=== PATIENT | male | born 1935 | race Caucasian/White ===

== ENCOUNTER 2019-05-01 10:31 | Inpatient (IN) | payer OTHER ==
--- OUTSIDE RECORDS SUMMARY | 2019-05-01 10:41 | XMS REPORT | Continuity of Care Document ---
:1935 Author Organization [employer] [facility] Care Team Providers Name Role Phone Tarena Unavailable Unavailable Problems No Data Provided for This Section Medications No Data Provided for This Section Allergies, Adverse Reactions, Alerts No Known Medication Allergies Immunizations No Data Provided for This Section Results No Data Provided for This Section Pathology Reports No Data Provided for This Section Diagnostic Reports No Data Provided for This Section Consultation Notes No Data Provided for This Section Discharge Summaries No Data Provided for This Section History and Physicals No Data Provided for This Section Vital Signs No Data Provided for This Section Encounters Location Location Encounter Encounter Reason Attending ADM DC Status Source Details Type Number For Provider Date Date Visit Outpatient [id number] TATIANA 11/08 Active [facility] Outpatient [id number] TATIANA 12/06 [facility] Outpatient [id number] TATIANA 04/25 [facility] Procedures No Data Provided for This Section Assessment and Plan No Data Provided for This Section Plan of Care No Data Provided for This Section Social History No Data Provided for This Section Family History No Data Provided for This Section Advance Directives No Data Provided for This Section Functional Status No Data Provided for This Section
--- OUTSIDE RECORDS SUMMARY | 2019-05-01 10:42 | XMS REPORT ---
:1935 [facility] [address] [place] [address] Care Team Providers Name Role Phone Unavailable Unavailable Unavailable Payers Payer Name Policy Type Policy Number Effective Date Expiration Date Problems This patient has no known problems. Allergies, Adverse Reactions, Alerts Allergy Name Allergy Status Severity Reaction(s) Onset Inactive Treating Comments Type Date Date Clinician morphine DA Active SV 04-26 00:00: 00 codeine DA Active SV 18 00:00: 00 ciprofloxacin DA Active SC 18 00:00: 00 etodolac DA Active U 18 00:00: 00 tramadol DA Active SC 2017-18 00:00: 00 meperidine DA Active U 18 00:00: 00 STEROIDS DA Active SV 03-03 00:00: 00 Medications This patient has no known medications.
[2019-05-01 10:58] VITALS: BMI 23.8
[2019-05-01] MEDS ORDERED: LOPERAMIDE HCL 2 MG CAPSULE PO PRN (12:00)
[2019-05-01] MEDS ORDERED: ONDANSETRON 4 MG (ODT) TAB PO PRN (12:00)
[2019-05-01] MEDS ORDERED: ONDANSETRON 4 MG/2 ML VIAL IV PRN (12:00)
[2019-05-01] MEDS ORDERED: DIPHENHYDRAMINE 25 MG TAB/CAP PO PRN (12:00)
[2019-05-01] MEDS ORDERED: POLYETHYL GLY 3350 17 GM/DOSE PO PRN (12:00)
[2019-05-01 12:12] LABS: Absolute Lymphocytes (CBC) 1.5 K/uL (0.7-4.9); Basophils % 0.5 % (0-1.3); Hematocrit 33.1 % (39.6-49.0); Lymphocytes % 14.8 % (15.3-44.8); MPV 9.2 fL (7.6-11.3); RBC Red Blood Cell Count 3.44 M/uL (4.33-5.43)
[2019-05-01 12:21] LABS: Protime INR 1.01
[2019-05-01] MEDS: NACHLORIDE 0.45% 1,000 ML IV SCH (12:23)
[2019-05-01 13:24] LABS: Albumin 3.3 g/dL (3.4-5.0); Bilirubin Direct 0.4 mg/dL (0-0.2); Phosphorus 2.4 mg/dL (2.5-4.9); Potassium 4.3 mmol/L (3.5-5.1); Protein, Total 6.5 g/dL (6.4-8.2); Thyroid Stimulating Hormone 1.92 uIU/mL (0.360-3.740)
--- NOTE | 2019-05-01 13:58 | RAD REPORT ---
EXAM DESCRIPTION: RAD - Chest Pa And Lat (2 Views) - 05/01/2019 1:49 pm CLINICAL HISTORY: DEHYDRATION Chest pain. COMPARISON: Chest Pa And Lat (2 Views) dated 11/16/2018; Chest Single View dated 05/27/2016; CHEST SING LE VIEW dated 11/29/2014; CHEST SINGLE VIEW dated 01/18/2010 FINDINGS: The lungs are emphysematous but clear. The heart is upper limit of normal in size. No disp laced fractures. Sternotomy wires noted. IMPRESSION: Prominent COPD.
--- NOTE | 2019-05-01 14:33 | RAD REPORT ---
EXAM DESCRIPTION: RAD - Barium Swallow Modified - 05/01/2019 2:27 pm CLINICAL HISTORY: Failed bedside swallow test Dysphasia COMPARISON: Upper GI Series Wo KUB dated 06/08/2018 TECHNIQUE: The patient was given liquid, semi-solid and solid forms of barium. Lateral view fluorosc opic imaging was performed in conjunction with speech pathology service. FINDINGS: Laryngeal penetration: to the vocal cords with tsp thin. Aspiration: delayed cough, with very large serial sip of nectar when taking barium tablet only. Not r epeated on small single sips. Mild to moderate pharyngeal residue in vallecular, pyriform, posterior wall. Mild esophageal stasis. Total fluoroscopy time: 3 minutes and 51 seconds
--- NOTE | 2019-05-01 15:50 | RAD REPORT ---
EXAM DESCRIPTION: MRI - MRA Head Wo Cont - 05/01/2019 3:29 pm CLINICAL HISTORY: Transient alteration of awareness COMPARISON: MR brain November 2018 TECHNIQUE: Axial and coronal 3D [id number] image acquisition was performed. 3D rotational images were generated with source and reconstruction images reviewed. Horizontal and vertical axis rotation al views generated using MIP protocol. FINDINGS: Major venous sinuses are patent. No aneurysm or vascular malformation. Distal vertebral arteries and the basilar artery are normal. Significant atherosclerotic changes are present in these changes are accentuated by motion. Significa nt luminal narrowing involves the supraclinoid portions of each internal carotid artery. This atheros clerotic change continues into the origins of each anterior cerebral artery and each middle cerebral artery. There are significant atherosclerotic changes causing luminal narrowing at the proximal M2 br anches of each site. Significant atherosclerotic changes are present in the distal P2 branches of eac h posterior cerebral artery. IMPRESSION: Significant intracranial atherosclerotic changes are present involving the distal most a spect of each internal carotid artery, [place] and proximal branches of the anterior, middle and posterior cerebral artery distributions. No aneurysm or vascular malformation.
--- NOTE | 2019-05-01 15:54 | RAD REPORT ---
EXAM DESCRIPTION: MRI - MRA Neck W/Wo Cont - 05/01/2019 3:29 pm CLINICAL HISTORY: Transient alteration of awareness, stroke-like symptoms COMPARISON: None. TECHNIQUE: Axial and coronal 3D [id number] image acquisition was performed. 3D rotational images were generated with source and reconstruction images reviewed. Horizontal and vertical axis rotation al views generated using MIP protocol. FINDINGS: Aortic arch is 3 vessel configuration with no origins stenosis. There is approximately 25% stenosis of the left subclavian artery distal to the left vertebral artery origin. Imaged portion of the right subclavian artery is unremarkable. Vertebral arteries are codominant. Mild atherosclerotic changes are present at each carotid bulb. This does not result in any measurable luminal narrowing. No dissection or vascular malformation. No significant luminal narrowing or ather osclerotic change otherwise noted. IMPRESSION: Mild atherosclerotic changes are present without significant luminal narrowing. No dissection, aneurysm or vascular malformation.
--- NOTE | 2019-05-01 15:57 | RAD REPORT ---
EXAM DESCRIPTION: MRI - Brain W/Wo Cont - 05/01/2019 3:29 pm CLINICAL HISTORY: Transient alteration of awareness, stroke-like symptoms COMPARISON: MR brain November 2018 TECHNIQUE: Sagittal and axial T1-weighted images were obtained. Axial PD/heavily T2-weighted and T2- FLAIR images were obtained along with axial DWI/ADC mapping sequences. Coronal heavily T2 weighted s equence obtained. Axial and coronal post-contrast T1-weighted images were also obtained. A 20 ml Mul tihance contrast following utilized. FINDINGS: No intracranial hemorrhage, mass or acute infarction. There is no edema or shift of midli ne structures. No extra-axial fluid collections. Mott-matter/white matter junction is preserved. Sig nal voids are seen as a normal finding in the major intracranial vessels. Atrophy and chronic ischemi c changes are present to moderate degree for age. Pattern matches November 2018. Ventricles are in pr oportion to the volume loss Post-contrast images show normal enhancement. No dural thickening. Mastoid air cells are clear. No air-fluid level in the paranasal sinuses. No globe or orbital content abnormality. No sella or supra sella abnormality. IMPRESSION: Atrophy and chronic ischemic changes are present matching November 2018 examination. No acute intracranial finding.
[2019-05-01] MEDS: CEFTRIAXONE/SWI 1gm 1 GM/10 ML SYR IV SCH (16:47)
[2019-05-01 18:22] LABS: Urine Appearance CLOUDY; Urine Bilirubin NEGATIVE (NEG); Urine Blood NEGATIVE (NEG); Urine Color YELLOW; Urine Glucose NEGATIVE (NEG); Urine Protein NEGATIVE (NEG)
[2019-05-01 18:48] LABS: Urine Microscopic Reflex ORDER UMIC
[2019-05-01 19:00] LABS: Urine Bacteria LOADED /HPF (NONE SEEN); Urine RBC <5 /HPF (NONE SEEN)
[2019-05-01 19:01] LABS: Urine Culture Reflex Order REFLEXED
[2019-05-02] MEDS: NACHLORIDE 0.45% 1,000 ML IV SCH ×2 (02:25→14:20)
[2019-05-02 05:54] LABS: Absolute Lymphocytes (CBC) 1.6 K/uL (0.7-4.9); Basophils % 0.7 % (0-1.3); Lymphocytes % 19.9 % (15.3-44.8); RBC Red Blood Cell Count 3.42 M/uL (4.33-5.43)
[2019-05-02 06:13] LABS: Potassium 4.2 mmol/L (3.5-5.1)
[2019-05-02] MEDS ORDERED: ENOXAPARIN 40 MG/0.4 ML SQ SCH (09:00)
--- NOTE | 2019-05-02 10:41 | EKG ---
Test Date: 2019-05-01 Test Time: 11:44:55 Assembler Product: NISHA MEASUREMENT RESULTS: Intervals: Rate: 71 NV: 190 QRSD: 110 QT: 394 QTc: 428 Leonard: P: 62 NV: 190 QRS: 65 T: 69 INTERPRETIVE STATEMENTS: Normal sinus rhythm Normal ECG Compared to ECG 03/31/2017 09:11:07 Sinus arrhythmia no longer present Electronically Signed On 05-02-19 10:41:17 CDT by Kwame Downing
[2019-05-02 11:46] VITALS: O2SAT 98
[2019-05-02] MEDS: CEFTRIAXONE/SWI 1gm 1 GM/10 ML SYR IV SCH (14:30)
[2019-05-02 17:05] VITALS: BP 149/68; TEMP 98.5
--- NOTE | 2019-05-02 21:37 | P.DS ---
Admission Date: 05/02/19 Discharge Date: 05/02/19 Disposition: ROUTINE DISCHARGE Hospital Course: MR ZEE IS A LOT BETTER WITH IV FLUIDS AND ABX. HE HAS UTI AND DEHYDRATION. HE DID NOT HAVE ANY STROKE OR TUMOR ON MRI. HE IS STABLE FOR DISCHARGE. HE WILL NOT DRIVE ANY LONGER. FAMILY IS ARRANGING FOR 24 HOUR CARE. HE WILL TAKE CEFTIN BID FOR 7 DAYS. FU IN OFFICE IN ONE WEEK. HIS BARIUM STUDY SHOWS ASPIRATION POTENTIAL AND HAS BEEN ADVISED TO THICKEN LIQUIDS. Vital Signs/Physical Exam: Temp Pulse Resp BP Pulse Ox 98.5 F 72 17 149/68 H 98 05/02/19 16:00 05/02/19 16:00 05/02/19 16:00 05/02/19 16:00 05/02/19 16:00 General: Alert, In no apparent distress HEENT: Atraumatic, PERRLA, EOMI Neck: Supple, JVD not distended Respiratory: Clear to auscultation bilaterally, Normal air movement Cardiovascular: Regular rate/rhythm, Normal S1 S2 Gastrointestinal: Normal bowel sounds, No tenderness Musculoskeletal: No tenderness Integumentary: No rashes Neurological: Normal speech, Abnormal strength (MIL DIFFUSE WEAKNESS.) Lymphatics: No axilla or inguinal lymphadenopathy Laboratory Data at Discharge: WBC 7.8 K/uL (4.3-10.9) D 05/02/19 05:27 Hgb 11.3 g/dL (13.6-17.9) L 05/02/19 05:27 Hct 33.0 % (39.6-49.0) L 05/02/19 05:27 Plt Count 191 K/uL (152-406) 05/02/19 05:27 PT 11.9 SECONDS (9.5-12.5) 05/01/19 11:55 INR 1.01 05/01/19 11:55 APTT 23.3 SECONDS (24.3-36.9) L 05/01/19 11:55 Sodium 141 mmol/L (136-145) 05/02/19 05:27 Potassium 4.2 mmol/L (3.5-5.1) 05/02/19 05:27 BUN 16 mg/dL (7-18) 05/02/19 05:27 Creatinine 1.21 mg/dL (0.55-1.3) 05/02/19 05:27 Glucose 101 mg/dL (74-106) 05/02/19 05:27 Phosphorus 2.4 mg/dL (2.5-4.9) L 05/01/19 11:55 Magnesium 2.0 mg/dL (1.8-2.4) 05/02/19 05:27 Total Bilirubin 1.0 mg/dL (0.2-1.0) 05/01/19 11:55 AST 20 U/L (15-37) 05/01/19 11:55 ALT 22 U/L (12-78) 05/01/19 11:55 Alkaline Phosphatase 84 U/L (45-117) 05/01/19 11:55 Home Medications: Amlodipine Besylate 5 mg PO BEDTIME 05/01/19 Aspirin 1 tab PO DAILY 05/01/19 Atorvastatin Calcium 40 mg PO BEDTIME 05/01/19 Calcium Carbonate/Vitamin D3 [Calcium 600-Vit D3 800 Tablet] 1 each PO BID 05/01 Chlorpromazine HCl [Thorazine] 25 mg PO DAILY 05/01/19 Gabapentin 300 mg PO BEDTIME 05/01/19 Glimepiride 1 tab PO DAILY 05/01/19 Glucosamine/Chondroiti/Hrb#270 [Cosamin Asu Capsule] 2 tab PO BEDTIME 05/01/19 Lisinopril 1 tab PO DAILY 05/01/19 Lubiprostone [Amitiza] 16 mcg PO BEDTIME 05/01/19 Meclizine HCl 1 tab PO BEDTIME 05/01/19 Memantine HCl 1 tab PO BID 05/01/19 Multivitamin [Daily Multiple Vitamin] 1 each PO DAILY 05/01/19 Omeprazole [Prilosec] 1 tab PO DAILY 05/01/19 Quetiapine Fumarate [Seroquel] 25 mg PO BEDTIME 05/01/19 Rivastigmine Patch [Exelon 9.5 mg Patch] 9.5 mg TD BEDTIME 05/01/19 Terbinafine HCl [Lamisil*] 1 tab PO BEDTIME 05/01/19 Cefuroxime [Ceftin] 250 mg PO BID #14 tab 05/02/19 New Medications: Cefuroxime [Ceftin] 250 mg PO BID #14 tab Followup: Vignesh Murillo MD [Primary Care Provider] -
== END 2019-05-02 17:36 | disposition home or self-care (01) | DRG 690 ==
LOC: 2ND 10:39 → OBSVTOIN 05-02 16:21
PROVIDERS: ADMIT Internal Medicine; ATTEND Internal Medicine
DX: N39.0 Urinary tract infection, site not specified (principal); E86.0 Dehydration; I12.9 Hypertensive chronic kidney disease with stage 1 through stage 4 chronic kidney disease, or unspecified chronic kidney disease; E11.22 Type 2 diabetes mellitus with diabetic chronic kidney disease; N18.2 Chronic kidney disease, stage 2 (mild); E11.42 Type 2 diabetes mellitus with diabetic polyneuropathy; E78.5 Hyperlipidemia, unspecified; K21.9 Gastro-esophageal reflux disease without esophagitis; G30.9 Alzheimer's disease, unspecified; F02.80 Dementia in other diseases classified elsewhere, unspecified severity, without behavioral disturbance, psychotic disturbance, mood disturbance, and anxiety; Z88.1 Allergy status to other antibiotic agents; Z88.5 Allergy status to narcotic agent
CPT/HCPCS: 36415; 70544; 70549; 70553; 71046; 74230; 80048; 80076; 81003; 81015; 82306; 82607; 82962; 83735; 84100; 84443; 85025; 85610; 85730; 87077; 87086; 87088; 87186; 92526; 92611; 93005; 97161; A9577; G0378; J0696; J1650

== ENCOUNTER 2019-06-11 20:48 | Emergency (ER) | payer OTHER ==
--- OUTSIDE RECORDS SUMMARY | 2019-06-11 20:53 | XMS REPORT ---
:1935 [facility] Address [address] [place] [address] Care Team Providers Name Role Phone Unavailable Unavailable Unavailable Payers Payer Name Policy Type Policy Number Effective Date Expiration Date Problems This patient has no known problems. Allergies, Adverse Reactions, Alerts Allergy Name Allergy Status Severity Reaction(s) Onset Inactive Treating Comments Type Date Date Clinician morphine DA Active SV 18 00:00: 00 codeine DA Active SV 18 00:00: 00 ciprofloxacin DA Active TN 18 00:00: 00 etodolac DA Active U 18 00:00: 00 tramadol DA Active TN 18 00:00: 00 meperidine DA Active U 18 00:00: 00 STEROIDS DA Active SV 03-03 00:00: 00 Medications This patient has no known medications.
--- OUTSIDE RECORDS SUMMARY | 2019-06-11 20:53 | XMS REPORT | Continuity of Care Document ---
:1935 Author Organization [employer] Care Team Providers Name Role Phone [employer] Unavailable Unavailable Problems Problem Status Onset Classification Date Comments Source Date Reported Constipation Active Problem 05/13/2019 [facility] Diabetes Active Problem 05/13/2019 [facility] Dizziness Active Problem 05/13/2019 [facility] Acid reflux Active Problem 05/13/2019 [facility] Hiccups Active Problem 05/13/2019 [facility] Hyperlipidemia Active Problem 05/13/2019 [facility] HBP (Confirmed) Active Problem 05/13/2019 [facility] Memory loss Active Problem 05/13/2019 [facility] Neuropathy Active Problem 05/13/2019 [facility] Constipation Active Problem 05/29/2019 [facility] (disorder) [facility] Diabetes mellitus Active Problem 05/29/2019 [facility] (disorder[facility] Dizziness (finding) Active Problem 05/29/2019 [facility] Gastroesophageal Active Problem 05/29/2019 [facility] reflux disease Neuro (disorder) Hiccoughs (finding) Active Problem 05/29/2019 [facility] Hyperlipidemia Active Problem 05/29/2019 [facility] (disorder) [facility] Hypertensive Active Problem 05/29/2019 [facility] disorder, systemic Neuro arterial (disorder) Memory impairment Active Problem 05/29/2019 [facility] (finding) [facility] Neuropathy Active Problem 05/29/2019 [facility] (disorder) [facility] Medications Medication Details Route Status Patient Ordering Order Source Instructions Provider Date 24 HR =1 patch, Active [facility] rivastigmine TOP, 019 [facility] 0.396 MG/HR Daily, Transdermal Patch apply to [Exelon] area that is clean/dry/ hairless & free of redness/ir ritation/b urns/cuts, # 30 patch, 0 Refill(s) meclizine 25 mg 25 mg=1 Active [facility] oral tablet tab, PO, 019 [facility] TID, 0 Refill(s) atorvastatin 40 40 mg=1 Active [facility] mg oral tablet tab, PO, 019 [facility] Daily, 0 Refill(s) gabapentin 300 MG 300 mg=1 Active [facility] Oral Capsule cap, PO, 019 Neuro TID, 0 Refill(s) QUEtiapine 25 mg 25 mg=1 Active [facility] oral tablet tab, PO, 019 Neuro TID, 0 Refill(s) rivastigmine 0 Inactive [facility] Refill(s) 019 Neuro chlorproMAZINE 25 25 mg=1 Active [facility] mg oral tablet tab, PO, 019 Neuro TID, 0 Refill(s) glimepiride 2 mg 2 mg=1 Active [facility] oral tablet tab, PO, 019 [facility] Daily, 0 Refill(s) Omeprazole 40 mg, PO, Active [facility] Daily, 0 019 [facility] Refill(s) lubiprostone 8 Active [facility] 0.008 MG Oral microgram= 019 Neuro Capsule [Amitiza] 1 cap, PO, BID, # 60 tab, 0 Refill(s) naproxen sodium 220 mg, Active [facility] PO, 0 019 [facility] Refill(s) lisinopril 40 mg 40 mg=1 Active [facility] oral tablet tab, PO, 019 [facility] Daily, 0 Refill(s) Aspirin 81 mg, 0 Active [facility] Refill(s) 019 [facility] Amlodipine 5 mg, PO, Active [facility] Daily, 0 019 [facility] Refill(s) Allergies, Adverse Reactions, Alerts Substance Category Reaction Severity Reaction Status Date Comments Source type Reported codeine Assertion Drug Active [facility] morphine Assertion Drug Active [facility] Cipro Assertion Drug Active [facility] Lodine Assertion Drug Active [facility] Demerol Assertion Drug Active [facility] escitalopram Assertion Drug Active [facility] anabolic Assertion Drug Active [facility] steroids allergy Neuro traMADol Assertion Drug Active [facility] Immunizations No Data Provided for This Section Results No Data Provided for This Section Pathology Reports No Data Provided for This Section Diagnostic Reports No Data Provided for This Section Consultation Notes No Data Provided for This Section Discharge Summaries No Data Provided for This Section History and Physicals No Data Provided for This Section Vital Signs Vital Sign Value Date Comments Source Systolic (mm Hg) 103 11/08/2018 [facility] Diastolic (mm Hg) 51 11/08/2018 [facility] Heart Rate 70 11/08/2018 [facility] Respitory Rate 16 11/08/2018 [facility] Height 187.96 cm 11/08/2018 [facility] Weight 83.182 11/08/2018 [facility] BMI Calculated 23.54 11/08/2018 [facility] Encounters Location Location Encounter Encounter Reason Attending ADM DC Status Source Details Type Number For Provider Date Date Visit Outpatient [id number] TATIANA 11/08 Active [facility] Outpatient [id number] Tatiana 11/08 11/09 [facility] [place] Outpatient [id number] TATIANA 12/06 [facility] Outpatient [id number] TATIANA 04/25 [facility] Ambulatory [id number] Tatiana 05/11 05/11 [facility] [place] Procedures Procedure Code Date Perfomer Comments Source Bypass [id number] [facility] Carotid artery [id number] [facility] doppler assessment Neuro Cataract surgery [id number] [facility] Cholecystectomy [id number] [facility] Polypectomy [id number] [facility] Shoulder replacement [id number] [facility] Assessment and Plan No Data Provided for This Section Plan of Care No Data Provided for This Section Social History Social History Date Source Social History TypeResponse 11/10/2018 [facility] Employment/School 1 Smoking Status Never smoker; Exposure to Tobacco Smoke Unable to obtain; Cigarette Smoking Last 365 Days Unable to obtain; Reg Smoking Cessation Counseling No entered on: 12/06/18 1Can release medical information to Dr. Murillo-Primary care DrScott Daughter- Iva Shore, Son- Minh zee, Son -Mike Zee Family History No Data Provided for This Section Advance Directives No Data Provided for This Section Functional Status No Data Provided for This Section
--- OUTSIDE RECORDS SUMMARY | 2019-06-11 20:53 | XMS REPORT | Summary of Care ---
:1935 Author Organization [facility] Address [address] [place] [address]- Encounter [facility] Eliz(CHANCE) [id number] Date(s): 11/08/18 - 11/08/18 [facility] [address], [place] [id number]- [phone] Discharge Disposition: Home or Self Care Attending Physician: Gonzalo Wilkerson MD Referring Physician: Vignesh Murillo MD Vital Signs Most recent to oldest [Reference Range]: 1 Height 187.96 cm (11/08/18 11:36 AM) Blood Pressure [90-140/60-90 mmHg] 103/51 mmHg (11/08/18 11:36 AM) Respiratory Rate [14-20 BRMIN] 16 BRMIN (11/08/18 11:36 AM) Peripheral Pulse Rate [60-100 bpm] 70 bpm (11/08/18 11:36 AM) Weight 83.182 kg (11/08/18 11:36 AM) Body Mass Index 23.54 m2 (11/08/18 11:36 AM) Problem List Condition Effective Dates Status Health Status Informant Constipation(Confirmed) Active Diabetes(Confirmed) Active Dizziness(Confirmed) Active Acid reflux(Confirmed) Active Hiccups(Confirmed) Active Hyperlipidemia(Confirmed) Active HBP (high blood pressure)(Confirmed) Active Memory loss(Confirmed) Active Neuropathy(Confirmed) Active Allergies, Adverse Reactions, Alerts Substance Reaction Severity Status codeine Active morphine Active Cipro Active Lodine Active Demerol Active escitalopram Active anabolic steroids Active traMADol Active Medications Amitiza 8 mcg oral capsule 8 microgram=1 cap, PO, BID, # 60 tab, 0 Refill(s) Start Date: 11/08/18 Status: OrderedamLODIPine 5 mg, PO, Daily, 0 Refill(s) Start Date: 11/08/18 Status: Orderedaspirin 81 mg, 0 Refill(s) Start Date: 11/08/18 Status: Orderedatorvastatin 40 mg oral tablet 40 mg=1 tab, PO, Daily, 0 Refill(s) Start Date: 11/08/18 Status: OrderedchlorproMAZINE 25 mg oral tablet 25 mg=1 tab, PO, TID, 0 Refill(s) Start Date: 11/08/18 Status: OrderedExelon 9.5 mg/24 hr transdermal film, extended release =1 patch, TOP, Daily, apply to area that is clean/dry/hairless & free of redness/irritation/vela/cuts, # 30 patch, 0 Refill(s) Start Date: 11/08/18 Status: Orderedgabapentin 300 mg oral capsule 300 mg=1 cap, PO, TID, 0 Refill(s) Start Date: 11/08/18 Status: Orderedglimepiride 2 mg oral tablet 2 mg=1 tab, PO, Daily, 0 Refill(s) Start Date: 11/08/18 Status: Orderedlisinopril 40 mg oral tablet 40 mg=1 tab, PO, Daily, 0 Refill(s) Start Date: 11/08/18 Status: Orderedmeclizine 25 mg oral tablet 25 mg=1 tab, PO, TID, 0 Refill(s) Start Date: 11/08/18 Status: Orderednaproxen sodium 220 mg, PO, 0 Refill(s) Start Date: 11/08/18 Status: Orderedomeprazole 40 mg, PO, Daily, 0 Refill(s) Start Date: 11/08/18 Status: OrderedQUEtiapine 25 mg oral tablet 25 mg=1 tab, PO, TID, 0 Refill(s) Start Date: 11/08/18 Status: Orderedrivastigmine 0 Refill(s) Start Date: 11/08/18 Stop Date: 11/08/18 Status: Discontinued Results No data available for this section Immunizations No data available for this section Procedures Procedure Date Related Diagnosis Body Site Status Bypass Completed Carotid artery doppler assessment Completed Cataract surgery Completed Cholecystectomy Completed Polypectomy Completed Shoulder replacement Completed Social History Social History Type Response Employment/School 1 Smoking Status Never smoker; Exposure to Tobacco Smoke Unable to obtain; Cigarette Smoking Last 365 Days Unable to obtain; Reg Smoking Cessation Counseling No entered on: 12/06/18 1Can release medical information to Dr. Murillo-Primary care Dr. Daughter- Iva Shore, Son- Minh zee, Son -Mike Zee Assessment and Plan No data available for this section
[2019-06-11 23:39] LABS: Urine Blood TRACE (NEG); Urine Glucose NEGATIVE (NEG); Urine Protein NEGATIVE (NEG); Urine Specific Gravity 1.015 (1.005-1.030)
[2019-06-12] LABS: Absolute Lymphocytes (CBC) 2.8 K/uL (0.7-4.9); Basophils % 1.1 % (0-1.3); Hematocrit 33.5 % (39.6-49.0); Lymphocytes % 31.5 % (15.3-44.8); MPV 8.7 fL (7.6-11.3); RBC Red Blood Cell Count 3.47 M/uL (4.33-5.43)
[2019-06-12 00:03] LABS: Urine Bacteria LOADED /HPF (NONE SEEN); Urine Culture Reflex Order REFLEXED; Urine RBC <5 /HPF (NONE SEEN)
[2019-06-12 00:14] LABS: Albumin 3.5 g/dL (3.4-5.0); Bilirubin Direct 0.2 mg/dL (0-0.2); Bilirubin Total 0.6 mg/dL (0.2-1.0); Potassium 4.1 mmol/L (3.5-5.1)
--- NOTE | 2019-06-12 01:45 | ER ---
Nurse's Notes [facility] Name: Nasir Matthews Age: 84 yrs Sex: Male : 1935 Arrival Date: 06/11/2019 Time: 20:50 Bed 15 Private MD: Diagnosis: Urinary tract infection, site not specified Presentation: 06/11 21:32 Presenting complaint: Child states: He was acting very anxious recently, thinking he jb4 was going to and was very panicked. Tonight he was more confused and disoriented. He usually gets this way when he has a UTI. Transition of care: patient was not received from another setting of care. Onset of symptoms was June 11, 2019. Risk Assessment: Do you want to hurt yourself or someone else? Patient reports no desire to harm self or others. Initial Sepsis Screen: Does the patient meet any 2 criteria? No. Patient's initial sepsis screen is negative. Does the patient have a suspected source of infection? No. Patient's initial sepsis screen is negative. Care prior to arrival: None. 21:32 Method Of Arrival: Wheelchair jb4 21:32 Acuity: REBEL 3 jb4 Historical: - Allergies: 21:48 Cipro; jb4 21:48 Codeine; jb4 21:48 Demerol; jb4 21:48 Morphine; jb4 21:48 tramadol; jb4 21:48 Lodine; jb4 21:48 steroids; jb4 21:48 escitalopram; jb4 - Home Meds: 21:48 aspirin 81 mg Oral TbEC 1 tab once daily [Active]; Lantus 100 unit/mL Sub-Q soln jb4 [Active]; lisinopril 40 mg Oral tab 1 tab once daily [Active]; Nexium 40 mg Oral cpDR 1 cap once daily [Active]; Norvasc 5 mg Oral tab 1 tab twice a day [Active]; gabapentin 300 mg oral cap 1 cap [Active]; chlorpromazine 25 mg Oral tab 1 tab 3 times per day [Active]; atorvastatin 40 mg oral tab 1 tab once daily [Active]; quetiapine 25 mg oral tab 1 tab [Active]; rivastigmine 9.5 mg/24 hr transdermal pt24 1 patch once daily [Active]; memantine 5 mg oral tab 2 tabs 2 times per day [Active]; curaphen [Active]; Calcium+D oral oral [Active]; meclizine 25 mg Oral tab 1 tab 3 times per day [Active]; omeprazole 40 mg Oral cpDR 1 cap once daily [Active]; Amitiza 8 mcg oral cap 1 cap 2 times per day [Active]; Lamisil 250 mg oral tab 1 tab once daily [Active]; - PMHx: 21:48 Dementia; Diabetes - IDDM; High Cholesterol; Hypertension; neuropathy; vertigo; acid jb4 reflex; - PSHx: 21:48 lower back; 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 - Social history:: Smoking status: Patient/guardian denies using tobacco, Patient/guardian denies using alcohol. - Ebola Screening: : No symptoms or risks identified at this time. Screenin:20 Abuse screen: Denies threats or abuse. Nutritional screening: No deficits noted. jb4 Tuberculosis screening: No symptoms or risk factors identified. Fall Risk Fall in past 12 months (25 points). IV access (20 points). Mental Status- Overestimates/Forgets Limitations (15 pts.). Total Rodriguez Fall Scale indicates High Risk Score (45 or more points). Fall prevention measures have been instituted. Side Rails Up X 2 Placed Close to Nursing Station Frequent Obs/Assessments Occuring Family Present and informed to notify staff if the need to leave the bedside As available patient and family educated on Fall Prevention Program and Strategies. Assessment: 21:20 General: Appears in no apparent distress. comfortable, Behavior is calm, cooperative, jb4 appropriate for age. Pain: Complains of pain in groin Pain does not radiate. Pain currently is 2 out of 10 on a pain scale. Neuro: Level of Consciousness is awake, alert, obeys commands, Oriented to person. Cardiovascular: Patient's skin is warm and dry. Respiratory: Airway is patent Respiratory effort is even, unlabored, Respiratory pattern is regular, symmetrical. GI: No deficits noted. No signs and/or symptoms were reported involving the gastrointestinal system. : No deficits noted. No signs and/or symptoms were reported regarding the genitourinary system. EENT: No deficits noted. No signs and/or symptoms were reported regarding the EENT system. Derm: Skin is intact, Skin is pink, warm \T\ dry. Musculoskeletal: Circulation, motion, and sensation intact. 22:30 Reassessment: Patient appears in no apparent distress at this time. No changes from jb4 previously documented assessment. Patient and/or family updated on plan of care and expected duration. Pain level reassessed. 23:30 Reassessment: Patient appears in no apparent distress at this time. No changes from jb4 previously documented assessment. Patient and/or family updated on plan of care and expected duration. Pain level reassessed. 06/12 00:30 Reassessment: Patient appears in no apparent distress at this time. No changes from jb4 previously documented assessment. Patient and/or family updated on plan of care and expected duration. Pain level reassessed. 01:30 Reassessment: Patient appears in no apparent distress at this time. No changes from jb4 previously documented assessment. Patient and/or family updated on plan of care and expected duration. Pain level reassessed. 01:45 Reassessment: PT b/p dropped to 84/45, Provider notified. jb4 01:50 Reassessment: Patient appears in no apparent distress at this time. Reassessment: Pt jb4 d/c pending, pt receiving bolus of IV fluids. 02:36 Reassessment: Patient appears in no apparent distress at this time. No changes from jb4 previously documented assessment. Patient and/or family updated on plan of care and expected duration. Pain level reassessed. Patient states feeling better. Vital Signs: 06/11 21:48 BP 132 / 59; Pulse 68; Resp 16; Temp 98.1(O); Pulse Ox 98% on R/A; Weight 95.25 kg (R); jb4 Height 6 ft. 3 in. (190.50 cm) (R); Pain 2/10; 23:00 BP 151 / 61; Pulse 60; Resp 16; Pulse Ox 100% on R/A; jb4 06/12 00:00 BP 166 / 57; Pulse 64; Resp 16; Pulse Ox 100% on R/A; jb4 01:00 BP 145 / 56; Pulse 67; Resp 16; Pulse Ox 98% on R/A; jb4 01:45 BP 84 / 48; Pulse 64; Resp 16; Pulse Ox 96% on R/A; jb4 02:30 BP 151 / 59; Pulse 69; Resp 16; Pulse Ox 99% on R/A; jb4 06/11 21:48 Body Mass Index 26.25 (95.25 kg, 190.50 cm) jb4 ED Course: 06/11 20:50 Patient arrived in ED. ds1 21:19 Hipolito Kirkland, RN is Primary Nurse. jb4 21:20 Patient has correct armband on for positive identification. Bed in low position. Call jb4 light in reach. Side rails up X 1. Pulse ox on. NIBP on. 21:34 Triage completed. jb4 21:48 Arm band placed on left wrist. jb4 22:39 Davis Gold PA is PHCP. jr8 22:39 Yusuf Menjivar MD is Attending Physician. jr8 23:30 Initial lab(s) drawn, by me, sent to lab. Inserted saline lock: 20 gauge in left jb4 forearm, using aseptic technique. Blood collected. 06/12 01:42 Vignesh Murillo MD is Referral Physician. jr8 02:53 No provider procedures requiring assistance completed. IV discontinued, intact, jb4 bleeding controlled, No redness/swelling at site. Pressure dressing applied. Administered Medications: 02:01 Drug: NS 0.9% 1000 ml Route: IV; Rate: 1000 ml; Site: left forearm; jb4 02:40 Follow up: Response: No adverse reaction; IV Status: Completed infusion; IV Intake: jb4 1000ml 02:02 Drug: Augmentin 875 mg Route: PO; jb4 02:45 Follow up: Response: No adverse reaction jb4 Intake: 02:40 IV: 1000ml; Total: 1000ml. jb4 Outcome: 01:42 Discharge ordered by . jr8 02:55 Discharged to home via wheelchair. jb4 02:55 Condition: stable 02:55 Discharge instructions given to patient, family, Instructed on discharge instructions, follow up and referral plans. medication usage, Demonstrated understanding of instructions, follow-up care, medications, Prescriptions given X 1. 02:58 Patient left the ED. jb4 Signatures: Chen Irish ds1 Davis Gold PA PA jr8 Hipolito Kirkland, RN RN jb4 Corrections: (The following items were deleted from the chart) 02:55 02:53 Inserted saline lock: 20 gauge in left forearm, using aseptic technique. Blood jb4 collected. jb4 02:55 02:53 Initial lab(s) drawn, by me, sent to lab. jb4 jb4
--- NOTE | 2019-06-12 01:47 | EDPHYS ---
Physician Documentation [facility] Name: Nasir Matthews Age: 84 yrs Sex: Male : 1935 Arrival Date: 06/11/2019 Time: 20:50 Bed 15 Private MD: ED Physician Yusuf Menjivar HPI: 06/12 00:05 This 84 yrs old Male presents to ER via Wheelchair with complaints of Chills. jr8 00:05 Family stated that patient has history of dementia and will get aggravated and confused jr8 from time to time. Stated that he was complaining of being cold and was shaking today. Stated that he recently got off of Abx about 5 days ago for UTI. Wants to make sure he is not getting infected again . Onset: The symptoms/episode began/occurred acutely, today. Severity of symptoms: At their worst the symptoms were moderate in the emergency department the symptoms have improved mildly. The patient has not experienced similar symptoms in the past. The patient has not recently seen a physician. Historical: - Allergies: 06/11 21:48 Cipro; jb4 21:48 Codeine; jb4 21:48 Demerol; jb4 21:48 Morphine; jb4 21:48 tramadol; jb4 21:48 Lodine; jb4 21:48 steroids; jb4 21:48 escitalopram; jb4 - Home Meds: 21:48 aspirin 81 mg Oral TbEC 1 tab once daily [Active]; Lantus 100 unit/mL Sub-Q soln jb4 [Active]; lisinopril 40 mg Oral tab 1 tab once daily [Active]; Nexium 40 mg Oral cpDR 1 cap once daily [Active]; Norvasc 5 mg Oral tab 1 tab twice a day [Active]; gabapentin 300 mg oral cap 1 cap [Active]; chlorpromazine 25 mg Oral tab 1 tab 3 times per day [Active]; atorvastatin 40 mg oral tab 1 tab once daily [Active]; quetiapine 25 mg oral tab 1 tab [Active]; rivastigmine 9.5 mg/24 hr transdermal pt24 1 patch once daily [Active]; memantine 5 mg oral tab 2 tabs 2 times per day [Active]; curaphen [Active]; Calcium+D oral oral [Active]; meclizine 25 mg Oral tab 1 tab 3 times per day [Active]; omeprazole 40 mg Oral cpDR 1 cap once daily [Active]; Amitiza 8 mcg oral cap 1 cap 2 times per day [Active]; Lamisil 250 mg oral tab 1 tab once daily [Active]; - PMHx: 21:48 Dementia; Diabetes - IDDM; High Cholesterol; Hypertension; neuropathy; vertigo; acid jb4 reflex; - PSHx: 21:48 lower back; 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 - Social history:: Smoking status: Patient/guardian denies using tobacco, Patient/guardian denies using alcohol. - Ebola Screening: : No symptoms or risks identified at this time. ROS: 06/12 00:05 Eyes: Negative for injury, pain, redness, and discharge, ENT: Negative for injury, jr8 pain, and discharge, Neck: Negative for injury, pain, and swelling, Cardiovascular: Negative for chest pain, palpitations, and edema, Respiratory: Negative for shortness of breath, cough, wheezing, and pleuritic chest pain, Abdomen/GI: Negative for abdominal pain, nausea, vomiting, diarrhea, and constipation, Back: Negative for injury and pain, MS/Extremity: Negative for injury and deformity, Skin: Negative for injury, rash, and discoloration, Neuro: Negative for headache, weakness, numbness, tingling, and seizure. : Positive for urinary frequency. Exam: 00:05 Eyes: Pupils equal round and reactive to light, extra-ocular motions intact. Lids and jr8 lashes normal. Conjunctiva and sclera are non-icteric and not injected. Cornea within normal limits. Periorbital areas with no swelling, redness, or edema. ENT: Nares patent. No nasal discharge, no septal abnormalities noted. Tympanic membranes are normal and external auditory canals are clear. Oropharynx with no redness, swelling, or masses, exudates, or evidence of obstruction, uvula midline. Mucous membranes moist. Neck: Trachea midline, no thyromegaly or masses palpated, and no cervical lymphadenopathy. Supple, full range of motion without nuchal rigidity, or vertebral point tenderness. No Meningismus. Cardiovascular: Regular rate and rhythm with a normal S1 and S2. No gallops, murmurs, or rubs. Normal PMI, no JVD. No pulse deficits. Respiratory: Lungs have equal breath sounds bilaterally, clear to auscultation and percussion. No rales, rhonchi or wheezes noted. No increased work of breathing, no retractions or nasal flaring. Abdomen/GI: Soft, non-tender, with normal bowel sounds. No distension or tympany. No guarding or rebound. No evidence of tenderness throughout. Back: No spinal tenderness. No costovertebral tenderness. Full range of motion. Skin: Warm, dry with normal turgor. Normal color with no rashes, no lesions, and no evidence of cellulitis. MS/ Extremity: Pulses equal, no cyanosis. Neurovascular intact. Full, normal range of motion. Neuro: Awake and alert, GCS 15, oriented to person, place, time, and situation. Cranial nerves II-XII grossly intact. Motor strength 5/5 in all extremities. Sensory grossly intact. Cerebellar exam normal. Normal gait. Vital Signs: 06/11 21:48 BP 132 / 59; Pulse 68; Resp 16; Temp 98.1(O); Pulse Ox 98% on R/A; Weight 95.25 kg (R); jb4 Height 6 ft. 3 in. (190.50 cm) (R); Pain 2/10; 23:00 BP 151 / 61; Pulse 60; Resp 16; Pulse Ox 100% on R/A; jb4 06/12 00:00 BP 166 / 57; Pulse 64; Resp 16; Pulse Ox 100% on R/A; 4 01:00 BP 145 / 56; Pulse 67; Resp 16; Pulse Ox 98% on R/A; 4 01:45 BP 84 / 48; Pulse 64; Resp 16; Pulse Ox 96% on R/A; jb4 02:30 BP 151 / 59; Pulse 69; Resp 16; Pulse Ox 99% on R/A; 4 06/11 21:48 Body Mass Index 26.25 (95.25 kg, 190.50 cm) [facility] MDM: 06/11 22:39 Patient medically screened. jr8 06/12 01:42 Data reviewed: vital signs, nurses notes, lab test result(s). Data interpreted: Pulse jr8 oximetry: on room air is 100 %. Interpretation: normal. Counseling: I had a detailed discussion with the patient and/or guardian regarding: the historical points, exam findings, and any diagnostic results supporting the discharge/admit diagnosis, lab results, the need for outpatient follow up, a family practitioner, to return to the emergency department if symptoms worsen or persist or if there are any questions or concerns that arise at home. 06/11 23:10 Order name: Basic Metabolic Panel; Complete Time: 01:15 06/11 23:10 Order name: CBC with Diff; Complete Time: 00:07 06/11 23:10 Order name: Creatinine for Radiology; Complete Time: 00:15 06/11 23:10 Order name: Hepatic Function; Complete Time: 01:15 06/11 23:10 Order name: Urine Microscopic Only; Complete Time: 00:07 06/11 23:36 Order name: Urine Dipstick--Ancillary (enter results); Complete Time: 00:07 4 06/11 23:10 Order name: IV Saline Lock; Complete Time: 00:06 06/11 23:10 Order name: Labs collected and sent; Complete Time: 00:06/11 23:10 Order name: Urine Dipstick-Ancillary (obtain specimen); Complete Time: 23:33 06/12 00:33 Order name: Urine Culture EDMS Administered Medications: 02:01 Drug: NS 0.9% 1000 ml Route: IV; Rate: 1000 ml; Site: left forearm; jb4 02:40 Follow up: Response: No adverse reaction; IV Status: Completed infusion; IV Intake: jb4 1000ml 02:02 Drug: Augmentin 875 mg Route: PO; jb4 02:45 Follow up: Response: No adverse reaction jb4 Disposition: 06:33 Co-signature as Attending Physician, Yusuf Menjivar MD. pkl Disposition: 06/12/19 01:42 Discharged to Home. Impression: Urinary tract infection, site not specified. - Condition is Stable. - Discharge Instructions: Urinary Tract Infection, Adult. - Prescriptions for Augmentin 875- 125 mg Oral Tablet - take 1 tablet by ORAL route every 12 hours for 10 days; 20 tablet. - Medication Reconciliation Form, Thank You Letter, Antibiotic Education, Prescription Opioid Use form. - Follow up: Vignesh Murillo MD; When: Tomorrow; Reason: Recheck today's complaints, Continuance of care, Re-evaluation by your physician. - Problem is new. - Symptoms have improved. Signatures: Dispatcher [employer] EDMS Yusuf Menjivar MD MD pkl Roszak, Josh, PA PA jr8 Hipolito Kirkland, RN RN jb4 Corrections: (The following items were deleted from the chart) 02:58 01:42 06/12/2019 01:42 Discharged to Home. Impression: Urinary tract infection, site jb4 not specified. Condition is Stable. Forms are Medication Reconciliation Form, Thank You Letter, Antibiotic Education, Prescription Opioid Use. Follow up: Vignesh Murillo; When: Tomorrow; Reason: Recheck today's complaints, Continuance of care, Re-evaluation by your physician. Problem is new. Symptoms have improved. jr8
[2019-06-12] MEDS ORDERED: AMOX/K CLAV 875 MG TAB ONE (01:56)
[2019-06-12] MEDS ORDERED: NA CHLORIDE 0.9% 1,000 ML ONE (01:56)
[2019-06-12 03:06] VITALS: TEMP 98.1
[2019-06-12 03:12] VITALS: BP 151/59; O2SAT 99
== END 2019-06-12 02:58 | disposition home or self-care (01) ==
LOC: ER 20:48
DX: N39.0 Urinary tract infection, site not specified (principal); F03.90 Unspecified dementia, unspecified severity, without behavioral disturbance, psychotic disturbance, mood disturbance, and anxiety; E11.9 Type 2 diabetes mellitus without complications; I10 Essential (primary) hypertension; K21.9 Gastro-esophageal reflux disease without esophagitis; E78.00 Pure hypercholesterolemia, unspecified; Z88.6 Allergy status to analgesic agent; Z88.1 Allergy status to other antibiotic agents; Z88.8 Allergy status to other drugs, medicaments and biological substances
CPT/HCPCS: 87088; 85025; 87086; 80048; 36415; 80076; 87077; 87186; 96360; 99284; J7030; 81003; 81015